=== PATIENT | female | born 1950 | race Caucasian/White ===

== ENCOUNTER 2017-08-06 20:56 | Emergency (ER) | payer OTHER, MEDICARE ==
[~2017-08-06] VITALS: Ht 165.1 cm; Wt 172.4 kg
[2017-08-06 20:57] VITALS: BP 112/40
[2017-08-06] MEDS ORDERED: LISINOPRIL2.5 MG (21:09)
[2017-08-06] MEDS ORDERED: JANUVIA100 MG (21:10)
[2017-08-06] MEDS ORDERED: ALLOPURINOL 10100 M1 (21:11)
[2017-08-06] MEDS ORDERED: INDAPAMIDE2.5 MG (21:11)
[2017-08-06] MEDS ORDERED: LASIX 20 MG TAB20 MG (21:12)
[2017-08-06] MEDS ORDERED: LOPRESSOR100 M1 (21:13)
[2017-08-06 21:50] LABS: HEMATOCRIT 44.4 % (37.0-47.0); HEMOGLOBIN 15.1 gm/dL (12.0-15.0); MCH 30.3 pg (26.0-34.0); MCHC 33.9 g/dL (28.0-37.0); MCV 89.4 fL (80.0-100.0); MPV 8.7 fl. (7.2-11.1); NUCLEATED RBCS 0 /100WBC; PLATELET COUNT* 217 thou/uL (150-400); RBC 4.96 mil/uL (4.20-5.00); RDW-CV 15.3 % (10.5-14.5); WBC 6.5 thou/uL (4.0-11.0)
[2017-08-06 22:02] LABS: ANION GAP 10 mmol/L (7-16); BUN 43 mg/dL (7-18); CALCIUM 9.5 mg/dL (8.5-10.1); CHLORIDE 92 mmol/L (98-107); CO2 29 mmol/L (21-32); CREATININE 2.1 mg/dL (0.6-1.3); GLUCOSE 200 mg/dL (70-99); POTASSIUM 3.5 mmol/L (3.5-5.1); SODIUM 131 mmol/L (136-145)
[2017-08-06 22:13] LABS: ALBUMIN 2.8 g/dL (3.4-5.0); ALKALINE PHOSPHATASE 118 U/L (46-116); SGPT 28 U/L (30-65); TOTAL BILIRUBIN 1.8 mg/dL (<0.1-1.0); TOTAL PROTEIN 6.3 g/dL (6.4-8.2); TROPONIN-I LEVEL <0.06 ng/mL (<0.06)
[2017-08-06 22:25] LABS: LIPASE 67 U/L (73-393); SGOT 26 U/L (15-37)
[2017-08-06 22:41] LABS: ABSOLUTE LYMPHOCYTES 0.5 thou/uL (0.8-5.3); ABSOLUTE MONOCYTES 0.3 thou/uL (0.0-1.2); ABSOLUTE NEUTROPHILS 5.7 thou/uL (1.6-8.1)
[2017-08-06 22:42] LABS: PLATELET ESTIMATE ADEQUATE
[2017-08-06 23:29] LABS: URINE BLOOD NEGATIVE (Negative); URINE CLARITY SL CLOUDY; URINE COLOR DARK YELLOW; URINE GLUCOSE-RANDOM NEGATIVE (Negative); URINE KETONES TRACE (Negative); URINE LEUKOCYTES NEGATIVE (Negative); URINE NITRITE NEGATIVE (Negative); URINE PROTEIN TRACE (Negative); URINE SPECIFIC GRAVITY >= 1.030 (1.005-1.030)
[2017-08-06 23:30] LABS: ICTOTEST (BILI CONFIRMATORY) Positive (Negative); URINE BILIRUBIN 2+ (Negative)
[2017-08-06 23:35] LABS: HYALINE CASTS >10 Many /LPF (None Seen); SQUAMOUS >10 Many /LPF (0-3)
[2017-08-06 23:36] LABS: CELLULAR CASTS 0-3 Few /LPF (None Seen); COARSE GRANULAR CASTS 0-3 Few /LPF (None Seen); FINE GRANULAR CASTS 0-3 Few /LPF (None Seen); MUCUS 0-3 Light strn/LPF (None Seen)
[2017-08-06 23:37] LABS: BACTERIA >30 Many /HPF (None Seen); URINE RBC 3-10 Few /HPF (0-2); URINE WBC 6-15 Few /HPF (0-5)
[2017-08-06 23:38] LABS: CRYSTALS None Seen /LPF (None Seen)
[2017-08-07 00:19] LABS: INR 1.2; PROTIME 11.7 Seconds (9.20-11.50)
[2017-08-07 03:46] VITALS: BP 95/47
--- NOTE | 2017-08-07 13:50 | EKG ---
[place] [address] ELECTROCARDIOGRAM REPORT Name: SHARMILASANDRA Francis Room: 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: PAMELA Roblero : 1950 Requested By: Debi Zavala Order Number: [id number] MD: Adan Vitale Measurements Intervals [place] Rate: 71 P: -12 IN: 224 QRS: 32 QRSD: 130 T: -14 QT: 452 QTc: 492 Interpretive Statements Sinus rhythm Prolonged IN interval Right bundle branch block Inferior infarct, age indeterminate Lateral leads are also involved No previous ECG available for comparison Electronically Signed On 08-07-2017 13:49:49 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
== END 2017-08-07 03:48 | disposition short-term general hospital (02) ==
LOC: M.ERS 20:56 → M.TBA-ER 08-07 01:11 → M.ERS 08-07 01:11
PROVIDERS: Nurse Practitioner Family
DX: K56.699 Other intestinal obstruction unspecified as to partial versus complete obstruction (principal); I10 Essential (primary) hypertension; E11.9 Type 2 diabetes mellitus without complications; Z88.0 Allergy status to penicillin; Z88.5 Allergy status to narcotic agent